=== PATIENT | female | born 1945 | race Caucasian/White ===

== ENCOUNTER 2018-01-06 15:26 | Inpatient (IN) | payer MEDICARE, OTHER ==
[~2018-01-06] VITALS: Ht 170.2 cm; Wt 74.8 kg
[2018-01-06 16:45] LABS: Alanine Aminotransfer (ALT/SGP 53 U/L (12-78); Albumin, Blood 2.6 g/dL (3.4-5.0); Albumin/Globulin Ratio 0.5 (0.8-1.8); Alk Phos 714 U/L (50-136); Anion Gap 14 mmol/L (6-16); Aspartate Aminotrans (AST/SGOT 320 U/L (12-37); Blood Urea Nitrogen 4 mg/dL (8-24); Bun/Creatinine Ratio 6.5 (12.0-20.0); CO2, Blood 23 mmol/L (21-32); Calcium, Blood 8.6 mg/dL (8.5-10.1); Chloride, Blood 98 mmol/L (98-108); Creatinine, Blood 0.62 mg/dL (0.40-1.00); Globulin, Blood 5.1 g/dL (2.2-4.0); Glomerular Filtration Rate >60 (60-); Glucose, Blood 86 mg/dL (70-99); Potassium, Blood 4.1 mmol/L (3.5-5.5); Sodium, Blood 135 mmol/L (136-145); Total Protein, Blood 7.7 g/dL (6.4-8.2)
[2018-01-06 19:23] LABS: BASOPHILS ABSOLUTE AUTO 0.09 K/mm3 (0.00-0.23); BASOPHILS PERCENT AUTO 1 % (0-2); EOSINOPHILS ABSOLUTE AUTO 0.03 K/mm3 (0.00-0.68); EOSINOPHILS PERCENT AUTO 0 % (0-6); Hemoglobin 12.8 g/dL (11.5-16.0); IMMATURE GRAN ABSOLUTE AUTO 0.03 K/mm3 (0.00-0.10); IMMATURE GRAN PERCENT AUTO 0 % (0-1); LYMPHOCYTES ABSOLUTE AUTO 1.56 K/mm3 (0.84-5.20); LYMPHOCYTES PERCENT AUTO 17 % (21-46); MONOCYTES ABSOLUTE AUTO 0.82 K/mm3 (0.16-1.47); MONOCYTES PERCENT AUTO 9 % (4-13); Mean Corpuscular HGB 39.9 pg (26.0-34.0); Mean Corpuscular HGB Conc 36.6 g/dL (31.5-36.5); Mean Corpuscular Volume 109 fL (80-100); Mean Platelet Volume 10.6 fL (9.1-12.4); NEUTROPHILS ABSOLUTE AUTO 6.76 K/mm3 (1.96-9.15); NEUTROPHILS PERCENT AUTO 73 % (41-73); Platelet Count 151 K/mm3 (150-400); RDW Coefficient Variation 18.6 % (11.7-14.2); Red Blood Cell Count 3.21 M/mm3 (3.80-5.20); White Blood Cell Count 9.29 K/mm3 (4.00-11.30)
[2018-01-07 01:31] LABS: Hematocrit 31.7 % (33.0-51.0); Hemoglobin 11.7 g/dL (11.5-16.0); Mean Corpuscular HGB 39.5 pg (26.0-34.0); Mean Corpuscular HGB Conc 36.9 g/dL (31.5-36.5); Mean Corpuscular Volume 107 fL (80-100); Mean Platelet Volume 10.3 fL (9.1-12.4); Platelet Count 131 K/mm3 (150-400); RDW Coefficient Variation 18.3 % (11.7-14.2); RDW Standard Deviation 72.7 fL (35.1-46.3); Red Blood Cell Count 2.96 M/mm3 (3.80-5.20); White Blood Cell Count 8.64 K/mm3 (4.00-11.30)
[2018-01-07 01:47] LABS: Alanine Aminotransfer (ALT/SGP 42 U/L (12-78); Albumin, Blood 2.2 g/dL (3.4-5.0); Albumin/Globulin Ratio 0.6 (0.8-1.8); Alk Phos 580 U/L (50-136); Anion Gap 8 mmol/L (6-16); Aspartate Aminotrans (AST/SGOT 255 U/L (12-37); Bilirubin, Total 5.6 mg/dL (0.1-1.0); Blood Urea Nitrogen 4 mg/dL (8-24); Bun/Creatinine Ratio 7.5 (12.0-20.0); CO2, Blood 29 mmol/L (21-32); Calcium, Blood 7.9 mg/dL (8.5-10.1); Chloride, Blood 100 mmol/L (98-108); Creatinine, Blood 0.54 mg/dL (0.40-1.00); Globulin, Blood 3.9 g/dL (2.2-4.0); Glomerular Filtration Rate >60 (60-); Glucose, Blood 86 mg/dL (70-99); Potassium, Blood 4.1 mmol/L (3.5-5.5); Sodium, Blood 137 mmol/L (136-145); Total Protein, Blood 6.1 g/dL (6.4-8.2)
[2018-01-07 02:50] LABS: Source, Urine Clean Catch
[2018-01-07 02:53] LABS: Appearance, Urine Clear (Clear); Blood, Urine Neg (Neg); Color, Urine Amber (P-Yellow); Glucose Qualitative, Urine Neg (Neg); Ketones, Urine 1+ (Neg); Leukocyte Esterase, Urine 2+ (Neg); Nitrite, Urine Pos (Neg); Protein, Urine 1+ (Neg); Specific Gravity, Urine 1.015 (1.003-1.022); Urobilinogen, Urine 2+ (Normal)
[2018-01-07 02:58] LABS: Bilirubin, Urine 2+ (Neg)
[2018-01-07 02:59] LABS: Bacteria Few /hpf; Red Blood Cells, Urine 0-2 /hpf (0-2); Squamous Epithelial Cells Rare /hpf (Few)
[2018-01-08 08:34] LABS: HBSAG SCREEN Negative (Negative); HEP B CORE AB, TOT Negative (Negative); HEP C VIRUS AB 0.1 (0.0-0.9)
[2018-01-08 11:18] LABS: Alanine Aminotransfer (ALT/SGP 35 U/L (12-78); Albumin/Globulin Ratio 0.5 (0.8-1.8); Alk Phos 530 U/L (50-136); Anion Gap 11 mmol/L (6-16); Aspartate Aminotrans (AST/SGOT 187 U/L (12-37); Bilirubin, Total 6.2 mg/dL (0.1-1.0); Blood Urea Nitrogen 7 mg/dL (8-24); Bun/Creatinine Ratio 11.5 (12.0-20.0); CO2, Blood 24 mmol/L (21-32); Calcium, Blood 7.6 mg/dL (8.5-10.1); Chloride, Blood 104 mmol/L (98-108); Creatinine, Blood 0.61 mg/dL (0.40-1.00); Glomerular Filtration Rate >60 (60-); Glucose, Blood 130 mg/dL (70-99); Sodium, Blood 139 mmol/L (136-145)
[2018-01-08 15:29] LABS: International Normalized Ratio 1.67; Prothrombin Time Results 16.7 Sec (9.7-11.5)
[2018-01-09 05:49] LABS: Anion Gap 10 mmol/L (6-16); Blood Urea Nitrogen 4 mg/dL (8-24); CO2, Blood 25 mmol/L (21-32); Calcium, Blood 7.5 mg/dL (8.5-10.1); Chloride, Blood 106 mmol/L (98-108); Creatinine, Blood 0.57 mg/dL (0.40-1.00); Glomerular Filtration Rate >60 (60-); Glucose, Blood 83 mg/dL (70-99); Potassium, Blood 3.3 mmol/L (3.5-5.5); Sodium, Blood 141 mmol/L (136-145)
[2018-01-09 08:39] LABS: Adenovirus F 40/41 Not Detected (NOT DETECT); Astrovirus Not Detected (NOT DETECT); Campylobacter Sp Not Detected (NOT DETECT); Cryptosporidium Not Detected (NOT DETECT); Cyclospora Cayetanensis Not Detected (NOT DETECT); E. Coli O157 Not Detected (NOT DETECT); Entamoeba Histolytica Not Detected (NOT DETECT); Enteroaggregative E. coli-EAEC Not Detected (NOT DETECT); Enteropathogenic E. coli-EPEC Not Detected (NOT DETECT); Enterotoxigenic E. coli-ETEC Not Detected (NOT DETECT); Giardia Lamblia Not Detected (NOT DETECT); Norovirus GI/GII Not Detected (NOT DETECT); Plesiomonas Shigelloides Not Detected (NOT DETECT); Rotavirus A Not Detected (NOT DETECT); Salmonella Sp Not Detected (NOT DETECT); Sapovirus Not Detected (NOT DETECT); Shiga Toxin-prod E. coli-STEC Not Detected (NOT DETECT); Shigella/Enteroin E. coli-EIEC Not Detected (NOT DETECT); Vibrio Cholerae Not Detected (NOT DETECT); Vibrio Sp Not Detected (NOT DETECT); Yersinia Enterocolitica Not Detected (NOT DETECT)
[2018-01-09 11:18] LABS: Alanine Aminotransfer (ALT/SGP 31 U/L (12-78); Albumin, Blood 1.8 g/dL (3.4-5.0); Albumin/Globulin Ratio 0.5 (0.8-1.8); Alk Phos 465 U/L (50-136); Anion Gap 9 mmol/L (6-16); Aspartate Aminotrans (AST/SGOT 151 U/L (12-37); Blood Urea Nitrogen 5 mg/dL (8-24); Bun/Creatinine Ratio 9.3 (12.0-20.0); CO2, Blood 25 mmol/L (21-32); Calcium, Blood 7.4 mg/dL (8.5-10.1); Chloride, Blood 107 mmol/L (98-108); Creatinine, Blood 0.54 mg/dL (0.40-1.00); Globulin, Blood 3.8 g/dL (2.2-4.0); Glomerular Filtration Rate >60 (60-); Glucose, Blood 83 mg/dL (70-99); Potassium, Blood 3.3 mmol/L (3.5-5.5); Sodium, Blood 141 mmol/L (136-145); Total Protein, Blood 5.6 g/dL (6.4-8.2)
[2018-01-09 13:20] LABS: Bilirubin, Direct 5.6 mg/dL (0.0-0.3); Bilirubin, Indirect 0.9 mg/dL (0.1-0.7); Bilirubin, Total 6.5 mg/dL (0.1-1.0)
[2018-01-09] MEDS ORDERED: METR500 PO (13:38)
[2018-01-09] MEDS ORDERED: ROXICODONE5 MG PO (13:41)
[2018-01-09] MEDS ORDERED: CIPR500 PO (13:42)
[2018-01-09] MEDS ORDERED: POTA10T PO (13:42)
[2018-01-09] MEDS ORDERED: ONE DAILY ESS400 MCG PO (13:44)
== END 2018-01-09 15:13 | disposition home or self-care (01) | DRG 433 ==
LOC: ER 15:26 → MEDS 15:27 → ENPENDDIS 01-09 11:27 → MEDS 01-09 15:13
PROVIDERS: Emergency Medicine; Hospitalist; Internal Medicine
DX: K70.10 Alcoholic hepatitis without ascites (principal); K82.1 Hydrops of gallbladder; E86.0 Dehydration; R13.10 Dysphagia, unspecified; K22.2 Esophageal obstruction; K52.9 Noninfective gastroenteritis and colitis, unspecified; K76.0 Fatty (change of) liver, not elsewhere classified; Z66 Do not resuscitate; F10.10 Alcohol abuse, uncomplicated; E87.6 Hypokalemia; Z90.49 Acquired absence of other specified parts of digestive tract; Z90.710 Acquired absence of both cervix and uterus; Z90.79 Acquired absence of other genital organ(s)
CPT/HCPCS: 36415; 71046; 74177; 76705; 80048; 80053; 81001; 82247; 82248; 82977; 83605; 83690; 84145; 85025; 85027; 85610; 86704; 86708; 86803; 87086; 87340; 87507; 96365; 99285-25; J0295; J0696; J1650; J3010; J7030; Q9967

== ENCOUNTER 2018-11-06 17:56 | Inpatient (IN) | payer MEDICARE, OTHER ==
[~2018-11-06] VITALS: Ht 170.2 cm; Wt 70.3 kg
[~2018-11-06 17:56] MED LIST: CIPR500 PO; METR500 PO; ONE DAILY ESS400 MCG PO; POTA10T PO; ROXICODONE5 MG PO
[2018-11-06 18:54] LABS: Source, Urine Catheter
[2018-11-06] MEDS ORDERED: TEMA15 PO (18:54)
[2018-11-06 18:56] LABS: PCO2 Arterial 52.2 mmHg (35-45); PO2 Arterial 89.9 mmHg (80-100); pH Blood Arterial 7.29 (7.35-7.45)
[2018-11-06 18:57] LABS: Bilirubin, Urine Neg (Neg); Blood, Urine 5+ (Neg); Glucose Qualitative, Urine Neg (Neg); Ketones, Urine 1+ (Neg); Leukocyte Esterase, Urine 3+ (Neg); Nitrite, Urine Pos (Neg); Protein, Urine 3+ (Neg); Specific Gravity, Urine 1.015 (1.003-1.022); Urobilinogen, Urine 1+ (Normal)
[2018-11-06 19:05] LABS: Appearance, Urine Cloudy (Clear); Color, Urine Yellow (P-Yellow)
[2018-11-06 19:07] LABS: White Blood Cells, Urine TNTC /hpf (0-5)
[2018-11-06 19:08] LABS: Bacteria Many /hpf; Squamous Epithelial Cells Few /hpf (Few)
[2018-11-06 19:12] LABS: BASOPHILS ABSOLUTE AUTO 0.03 K/mm3 (0.00-0.23); BASOPHILS PERCENT AUTO 0 % (0-2); EOSINOPHILS ABSOLUTE AUTO 0.03 K/mm3 (0.00-0.68); EOSINOPHILS PERCENT AUTO 0 % (0-6); Hematocrit 47.2 % (33.0-51.0); Hemoglobin 15.1 g/dL (11.5-16.0); IMMATURE GRAN ABSOLUTE AUTO 0.02 K/mm3 (0.00-0.10); IMMATURE GRAN PERCENT AUTO 0 % (0-1); LYMPHOCYTES ABSOLUTE AUTO 0.52 K/mm3 (0.84-5.20); LYMPHOCYTES PERCENT AUTO 6 % (21-46); MONOCYTES ABSOLUTE AUTO 1.01 K/mm3 (0.16-1.47); MONOCYTES PERCENT AUTO 11 % (4-13); Mean Corpuscular HGB 37.1 pg (26.0-34.0); Mean Corpuscular Volume 116 fL (80-100); Mean Platelet Volume 9.5 fL (9.1-12.4); NEUTROPHILS ABSOLUTE AUTO 7.78 K/mm3 (1.96-9.15); NEUTROPHILS PERCENT AUTO 83 % (41-73); Platelet Count 101 K/mm3 (150-400); RDW Coefficient Variation 15.6 % (11.7-14.2); Red Blood Cell Count 4.07 M/mm3 (3.80-5.20); White Blood Cell Count 9.39 K/mm3 (4.00-11.30)
[2018-11-06 19:12] LABS: U Amphetamine Screen Not Detected; U Barbituate Screen Not Detected; U Benzodiazapine Screen DETECTED; U Buprenorphine Screen Not Detected; U Cannabinoids Screen Not Detected; U Cocaine Screen Not Detected; U Methadone Screen Not Detected; U Methamphetamine Screen Not Detected; U Opiates Screen DETECTED; U Oxycodone Screen DETECTED; U Phencyclidine Screen Not Detected; U Propoxyphene Screen DETECTED
[2018-11-06 19:33] LABS: Acetaminophen, Random 6.6 ug/mL (10.0-30.0); Alanine Aminotransfer (ALT/SGP 44 U/L (12-78); Albumin, Blood 3.4 g/dL (3.4-5.0); Albumin/Globulin Ratio 0.7 (0.8-1.8); Alk Phos 461 U/L (50-136); Anion Gap 10 mmol/L (6-16); Aspartate Aminotrans (AST/SGOT 149 U/L (12-37); Bilirubin, Total 1.5 mg/dL (0.1-1.0); Blood Urea Nitrogen 13 mg/dL (8-24); Bun/Creatinine Ratio 8.8 (12.0-20.0); CO2, Blood 28 mmol/L (21-32); Chloride, Blood 97 mmol/L (98-108); Creatinine, Blood 1.47 mg/dL (0.40-1.00); Ethanol (Alcohol), Blood, Med <3 mg/dL; Glomerular Filtration Rate 37 (60-); Glucose, Blood 77 mg/dL (70-99); Magnesium, Blood 2.2 mg/dL (1.6-2.4); Potassium, Blood 3.9 mmol/L (3.5-5.5); Salicylate <1.7 mg/dL (2.8-20.0); Sodium, Blood 135 mmol/L (136-145); Total Protein, Blood 8.4 g/dL (6.4-8.2)
[2018-11-06 21:00] LABS: International Normalized Ratio 1.32; Prothrombin Time Results 13.6 Sec (9.7-11.5)
[2018-11-06 21:07] LABS: PCO2 Arterial 51.3 mmHg (35-45); PO2 Arterial 57.1 mmHg (80-100); pH Blood Arterial 7.33 (7.35-7.45)
--- NOTE | 2018-11-06 21:20 | NUR ---
PT ARRIVES TO ICU 6 FROM ER FOR DX OF OVERDOSE AND UROSEPSIS. SHE OPENS HER EYES TO HER NAME WHEN LOUDLY STATED HOWEVER DOES NOT ANSWER QUESTIONS AND DOES NOT APPEAR TO FOLLOW DIRECTIONS AT THIS TIME. PUPILS ARE 4-5 AND SLUGGISH BUT REACTIVE. RESP RATE 12-14 ON ARRIVAL, MAINTAINING SATS MID 90S WITH OXYGEN AT 3 L/MIN VIA OXYMIZER, LUNGS NOTED CLEAR THROUGHOUT. HRR, SINUS RHYTHM ON MONITOR, PULSES FULL X 4 EXTREMITIES, CAP REFILL 3 SECONDS. HYPOACTIVE BOWEL TONES NOTED, ABD SOFT, NO GRIMACING WITH PALPATION. TEMP PROBE DAVISON IN PLACE DRAINING CLEAR CEZAR URINE TO GRAVITY. K-PADS NOTED IN PLACE TO TORSO AND BILAT LOWER EXTREMITIES AND PT IS NOTED TO BE SWEATING UNDERNEATH KPADS. MIMA HUGGER BLANKET IN PLACE, PT'S TEMP APPROACHING NORMOTHERMIC, WARMING DEVICES DC'D AND WARM BLANKETS APPLIED WILL MONITOR. PRESSURE INJURY NOTED TO COCCYX, PICTURES OBTAINED AND MEPILEX SACRAL PROTECTION DRESSING APPLIED. RASH IS NOTED TO LOW ABD, PICTURES OBTAINED, LEFT OPEN TO AIR.
[2018-11-06 22:28] LABS: Acetaminophen, Random 6.6 ug/mL (10.0-30.0)
[2018-11-06 22:31] LABS: Albumin, Blood 2.4 g/dL (3.4-5.0); Albumin/Globulin Ratio 0.6 (0.8-1.8); Bilirubin, Total 1.6 mg/dL (0.1-1.0); Bun/Creatinine Ratio 12.2 (12.0-20.0); Calcium, Blood 7.4 mg/dL (8.5-10.1); Creatinine, Blood 1.15 mg/dL (0.40-1.00); Globulin, Blood 3.7 g/dL (2.2-4.0); Potassium, Blood 3.7 mmol/L (3.5-5.5)
[2018-11-06 22:46] LABS: Total Protein, Blood 6.1 g/dL (6.4-8.2)
--- NOTE | 2018-11-07 00:55 | NUR ---
BLEEDING FROM CENTRAL LINE INSERTION PT CONTINUES TO BLEED UNDER CENTRAL LINE DRESSING WITH 2 LB WEIGHT TO SITE AND PAOLA DRESSING IN PLACE. DIRECT PRESSURE HELD X 10 MINUTES LESS THAN 2 MINUTES AFTER PRESSURE RELEASED PT IS NOTED TO BEGIN BLEEDING AGAIN. PRESSURE THEN HELD X 15 MINUTES WITH GOOD STABILIZATION OF SITE, WILL MONITOR. DR NIXON AWARE.
--- NOTE | 2018-11-07 02:34 | NUR ---
PT NOTED WITH SNORING RESPIRATIONS 8-10/MIN, NPA TO RIGHT NARE WITH IMPROVED RESPIRATORY RATE AND EFFORT, WILL CONT TO MONITOR. PT CONTINUES TO MAINTAIN SATURATIONS WITH GOOD TIDAL VOLUMES. LUNGS REMAIN CLEAR THROUGHOUT.
[2018-11-07 04:31] LABS: BASOPHILS ABSOLUTE AUTO 0.03 K/mm3 (0.00-0.23); BASOPHILS PERCENT AUTO 0 % (0-2); EOSINOPHILS ABSOLUTE AUTO 0.01 K/mm3 (0.00-0.68); EOSINOPHILS PERCENT AUTO 0 % (0-6); Hematocrit 39.1 % (33.0-51.0); Hemoglobin 12.3 g/dL (11.5-16.0); IMMATURE GRAN ABSOLUTE AUTO 0.03 K/mm3 (0.00-0.10); IMMATURE GRAN PERCENT AUTO 0 % (0-1); LYMPHOCYTES ABSOLUTE AUTO 0.57 K/mm3 (0.84-5.20); LYMPHOCYTES PERCENT AUTO 6 % (21-46); MONOCYTES ABSOLUTE AUTO 1.15 K/mm3 (0.16-1.47); MONOCYTES PERCENT AUTO 13 % (4-13); Mean Corpuscular HGB 36.7 pg (26.0-34.0); Mean Corpuscular HGB Conc 31.5 g/dL (31.5-36.5); Mean Corpuscular Volume 117 fL (80-100); Mean Platelet Volume 10.1 fL (9.1-12.4); NEUTROPHILS ABSOLUTE AUTO 7.44 K/mm3 (1.96-9.15); NEUTROPHILS PERCENT AUTO 81 % (41-73); Platelet Count 96 K/mm3 (150-400); RDW Coefficient Variation 15.3 % (11.7-14.2); RDW Standard Deviation 65.8 fL (35.1-46.3); Red Blood Cell Count 3.35 M/mm3 (3.80-5.20); White Blood Cell Count 9.23 K/mm3 (4.00-11.30)
[2018-11-07 04:34] LABS: PCO2 Arterial 58.3 mmHg (35-45); PO2 Arterial 71.5 mmHg (80-100)
[2018-11-07 04:35] LABS: pH Blood Arterial 7.25 (7.35-7.45)
[2018-11-07 04:54] LABS: Albumin, Blood 2.5 g/dL (3.4-5.0); Albumin/Globulin Ratio 0.6 (0.8-1.8); Bun/Creatinine Ratio 16.4 (12.0-20.0); Calcium, Blood 7.6 mg/dL (8.5-10.1); Creatinine, Blood 0.98 mg/dL (0.40-1.00); Globulin, Blood 3.9 g/dL (2.2-4.0); Potassium, Blood 4.3 mmol/L (3.5-5.5); Total Protein, Blood 6.4 g/dL (6.4-8.2)
--- NOTE | 2018-11-07 06:50 | NUR ---
PT NEW ADMIT THIS SHIFT FOR OVERDOSE SUICIDE ATTEMPT. SON, CORINNE, IN TO VISIT AND STATED THAT FAMILY HAD SUSPECTED SHE WAS PREPARING FOR SUICIDE ATTEMPT, HE STATED THAT SHE HAS BEEN GETTING HOUSE CLEANED AND IN ORDER AND GIVING SOME BELONGINGS AWAY BUT THAT SHE STRONGLY DENIED BEING DEPRESSED. PT IS EASIER TO AROUSE THIS AM, OPENS EYES TO HER NAME AND MAKES EYE CONTACT, ONE OR TWO WORD ANSWERS RARELY NOTED AND WHISPERED. SHE WAS HYPOTENSIVE SHORTLY AFTER ARRIVAL TO ICU AND 3RD LITER BOLUS WAS INITIATED BY FELICIA GALVAN WITH MAINTENANCE IVF RATE INCREASE X 1 HOUR, VERY LITTLE EFFECT NOTED TO BP AND DR NIXON ARRIVED TO BEDSIDE NEAR COMPLETION OF BOLUS. CENTRAL LINE PLACED BY DR NIXON TO RIGHT IJ FOR LEVOPHED ADMINISTRATION, PT TOLERATED PROCEDURE WELL HOWEVER HEMATOMA AND BLEEDING WERE NOTED AT INSERTION SITE PRIOR TO VERIFICATION CXR, 2 LB SANDBAG AND PAOLA DRESSING PLACED WITHOUT CONTROL OF BLEEDING, THESE WERE REMOVED AND BLEEDING WAS CONTROLLED WITH DIRECT PRESSURE HELD FOR A TOTAL OF 25 MINUTES. BP IS IMPROVED WITH LEVOPHED AT 4 MCG/MIN. LUNGS REMAIN CLEAR THROUGHOUT, PT MAINTAINED SATS WITH OXYGEN AT 3-4 L/MIN VIA OXYMIZER, RESP RATE 10-12, ABG THIS AM WITH INCREASED CO2 AND DECREASED PH, RESULTS PHONED TO DR NIXON AND BIPAP ORDERED, FOLLOW UP ABG FOR 0700 THIS AM.
[2018-11-07 08:44] LABS: PCO2 Arterial 58.8 mmHg (35-45); PO2 Arterial 91.4 mmHg (80-100); pH Blood Arterial 7.25 (7.35-7.45)
--- NOTE | 2018-11-07 09:04 | NUR ---
PT'S REPEAT ABG THIS AM UNCHANGED. DR. HUITRON NOTIFIED AND RECEIVED ORDER FOR CLOTH MERCERIZING SUPERVISOR CONSULT. DR. LOZANO NOTIFIED AND BIPAP SETTING CHANGED FROM 16 TO 02/03 AND ORDER FOR REPEAT ABG AT 0930, RT NOTIFIED OF CHANGES AND ORDERS.
[2018-11-07 10:05] LABS: PCO2 Arterial 58.3 mmHg (35-45); PO2 Arterial 101 mmHg (80-100)
[2018-11-07 10:06] LABS: pH Blood Arterial 7.25 (7.35-7.45)
--- NOTE | 2018-11-07 10:59 | NUR ---
INTUBATE: PT'S REPEAT ABG AT [address] LOZANO NOTIFIED AND DECIDED TO INTUBATE. PT WAS GIVEN 10MG ETOMIDATE AND 20MG ROCURONIUM FOR INTUBATION. PT INTUBATED AT 1025 WITH 7.5 TUBE AND 25 AT THE LIP. PT TOLERATED PROCEDURE WELL. PROPOFOL STARTED AND RESTRAINTS INITIATED. PT'S SON HERE AND WAS UPDATED ON CHANGES IN PT STATUS. CONTINUING TO MONITOR.
--- NOTE | 2018-11-07 12:32 | NUR ---
REASSESSMENT: PT GOT INTUBATED THIS MORNING DUE TO INSUFFICIENT VENTILATION AND PT IS DONG WELL SINCE. SHE IS ON PROPOFOL, BUT STILL OPENS HER EYES TO VERBAL STIMULI, BUT IS CALM AND GOES QUICKLY BACK TO SLEEP. SHE HAS SMALL AMT OF BLOODY SECRETIONS FROM HER MOUTH. OG HAD DARK GREEN OUTPUT AT FIRST AND NOW IS MORE CLEAR BILE APPEARANCE. SR. ATTEMPTED TO TURN LEVOPHED OFF, BUT BP DROPPED SO LEVOPHED BACK AT 2 MCG/MIN. NO OTHER CHANGES SINCE MORNING ASSESSMENT. CONTINUE TO MONITOR.
[2018-11-07 13:41] LABS: Base Excess Venous -1.1 mmol/L; PCO2 Venous 31.8 mmHg (38-42); PO2 Venous 75.6 mmHg (38-42); pH Blood Venous 7.46 (7.34-7.37)
--- NOTE | 2018-11-07 17:17 | NUR ---
SHIFT SUMMARY: PT WAS INTUBATED THIS SHIFT BUT HAD DONE WELL ON THE VENTILATOR SINCE. SHE IS LIGHTLY SEDATED WITH PROPOFOL, OPENING HER EYES TOV OICE, BUT REMAINS CALM AND COOPERATIVE. SHE ISN'T FOLLOWING COMMANDS BUT TRACKS PEOPLE IN THE ROOM WITH HER EYES. LUNGS ARE CLEAR, MOD AMT OF THICK MELISSA SPUTUM. STILL HAVING A SMALL AMT OF BLOODY SECRETIONS FROM ORAL CAVITY. SR, LEVOPHED TURNED OFF AT 1630 AND BP HOLDING SO FAR. OG PUTTING OUT DARK GREEN/ANIL FLUID. DAVISON DRAINING YELLOW URINE. PT'S SON WAS IN TODAY AND HAS BEEN FULLY UPDATED. CONTINUING TO MONITOR.
--- NOTE | 2018-11-07 19:15 | NUR ---
ASSUMED CARE PT IS INTUBATED AND SEDATED, PROPOFOL AT 20 MCG/KG/MIN. SHE OPENS HER EYES TO STATED NAME, DOES NOT ANSWER QUESTIONS AT THIS TIME, DOES MAKE EYE CONTACT AND DOES TRACK BRIEFLY HOWEVER IS NOTED TO CLOSE EYES WITHIN 15 SECONDS OF EYE OPENING. DOES NOT FOLLOW COMMANDS AT THIS TIME. ETT 7.5 @ 25 CM AT TEETH, VENT SETTING AC 20, TV 430, PEEP 5, AND FIO2 OF 30%, SATS ARE 96% AT THIS TIME, LUNGS REMAIN CLEAR THROUGHOUT, RATE IS 20 AT THIS TIME. HRR, SINUS WITH SINUS ARRHYTHMIA NOTED ON MONITOR, RATE 70S, PULSES FULL X 4 EXTREMITIES, SKIN IS PWD, TRACE EDEMA NOTED BILAT LOWER EXTREMITIES, MAINTAINING BP WITH LEVOPHED ON STANDBY SINCE APPROX 1600 TODAY, WILL CONT TO MONITOR. HYPOACTIVE BOWEL TONES CONTINUE, OG TUBE IS NOTED TO LOW INTERMITTENT SUCTION, OUPUT GREEN AT THIS TIME, ABD CONTINUES SOFT, NO GRIMACING OR GAURDING WITH PALPATION. TEMP PROBE DAVISON REMAINS IN PLACE, DRAINING CLEAR YELLOW URINE TO GRAVITY AT THIS TIME.
[2018-11-07 22:13] LABS: Base Excess Venous 2.7 mmol/L; Bicarbonate Venous 26.9 mmol/L (24.0-30.0); PCO2 Venous 29.1 mmHg (38-42); PO2 Venous 37.5 mmHg (38-42)
[2018-11-07 22:14] LABS: pH Blood Venous 7.54 (7.34-7.37)
[2018-11-08 03:51] LABS: BASOPHILS ABSOLUTE AUTO 0.03 K/mm3 (0.00-0.23); BASOPHILS PERCENT AUTO 1 % (0-2); EOSINOPHILS ABSOLUTE AUTO 0.47 K/mm3 (0.00-0.68); EOSINOPHILS PERCENT AUTO 8 % (0-6); Hematocrit 31.9 % (33.0-51.0); Hemoglobin 10.7 g/dL (11.5-16.0); IMMATURE GRAN ABSOLUTE AUTO 0.02 K/mm3 (0.00-0.10); IMMATURE GRAN PERCENT AUTO 0 % (0-1); LYMPHOCYTES ABSOLUTE AUTO 0.78 K/mm3 (0.84-5.20); LYMPHOCYTES PERCENT AUTO 13 % (21-46); MONOCYTES ABSOLUTE AUTO 0.58 K/mm3 (0.16-1.47); MONOCYTES PERCENT AUTO 10 % (4-13); Mean Corpuscular HGB 36.5 pg (26.0-34.0); Mean Corpuscular HGB Conc 33.5 g/dL (31.5-36.5); Mean Platelet Volume 10.3 fL (9.1-12.4); NEUTROPHILS ABSOLUTE AUTO 3.93 K/mm3 (1.96-9.15); NEUTROPHILS PERCENT AUTO 68 % (41-73); Platelet Count 80 K/mm3 (150-400); RDW Coefficient Variation 15.4 % (11.7-14.2); RDW Standard Deviation 62.2 fL (35.1-46.3); Red Blood Cell Count 2.93 M/mm3 (3.80-5.20); White Blood Cell Count 5.81 K/mm3 (4.00-11.30)
[2018-11-08 03:54] LABS: Mean Corpuscular Volume 109 fL (80-100)
[2018-11-08 04:14] LABS: Anion Gap 7 mmol/L (6-16); Blood Urea Nitrogen 9 mg/dL (8-24); Bun/Creatinine Ratio 13.2 (12.0-20.0); CO2, Blood 27 mmol/L (21-32); Calcium, Blood 7.6 mg/dL (8.5-10.1); Chloride, Blood 107 mmol/L (98-108); Creatinine, Blood 0.68 mg/dL (0.40-1.00); Glomerular Filtration Rate >60 (60-); Glucose, Blood 88 mg/dL (70-99); Potassium, Blood 2.8 mmol/L (3.5-5.5); Sodium, Blood 141 mmol/L (136-145)
--- NOTE | 2018-11-08 04:26 | NUR ---
PROPOFOL TO STANDBY FOR SPONTANEOUS BREATHING TRIAL.
--- NOTE | 2018-11-08 05:05 | NUR ---
SPONTANEOUS BREATHING TRIAL COMPLETE, PROPOFOL RESUMED, SEE RT SPONTANEOUS BREATHING TRIAL.
--- NOTE | 2018-11-08 06:47 | NUR ---
PT OPENING EYES SPONTANEOUSLY, PULLING AGAINST WRIST RESTRAINTS, MAKES EYE CONTANCT, APPEARS TO BE MOUTHING WORDS, UNABLE TO ASCERTAIN WHAT PT IS ATTEMPTING TO SAY, NODS HEAD "YES" WHEN EXPLAINED TO HER THAT SHE IS IN [facility] IN THE INTENSIVE CARE UNIT FOLLOWING HER DAUGHTER FINDING HER AT HER HOME WITH A SUICIDE NOTE, BOTTLES OF ALCOHOL, AND PILLS. PROPOFOL INCREASED TO 30 MCG/KG/MIN THEN INCREASED TO 40 MCG/KG/MIN. LUNGS REMAIN CLEAR THROUGHOUT, VENT SETTINGS ARE NOW AC 14, TV 430, FIO2 30% AND PEEP OF 5, SATS 99-100% AT THIS TIME. HRR, SINUS ON MONITOR, RATE 60S, PRESSURE MAINTAINING, LEVOPHED HAS REMAINED ON STANDBY THROUGHOUT SHIFT. OG TUBE REMAINS TO LOW INTERMITTENT SUCTION, OUTPUT OF 625 ML THIS SHIFT, DARK GREEN TO CLEAR BROWN THIS AM. DAVISON CATH REMAINS IN PLACE, URINE OUTPUT 765 ML THIS SHIFT. CENTRAL LINE REMAINS TO RIGHT IJ, DRESSING CDI, SITE WNL.
--- NOTE | 2018-11-08 09:28 | NUR ---
REPORTED PT'S PHOS LEVEL TO DR. LOZANO. RECEIVED ORDERS TO GIVE A TOTAL OF 70MEQ OF KCL AND 30MMOL OF KPHOS, SEE ORDERS.
--- NOTE | 2018-11-08 09:33 | NUR ---
SBT: PT WOKE UP AND WAS FOLLOWING COMMANDS WITH SEDATION OFF. MILDLY AGITATED, PULLING AT RESTRAINTS, BUT REDIRECTABLE. ON PS 5 PEEP 5 PT WOULD PULL VOLUMES OF 300-500ML FOR A FEW BREATHS, BUT THEN ONLY PULL 100-200ML FOR SEVERAL BREATHS. SHE KEPT UP THIS PATTERN THAT WAS SIMILAR TO BEFORE SHE WAS INTUBATED YESTERDAY, DESPITE BEING FULLY AWAKE DURING TRIAL. PT'S RESP RATE DID START TO GO BACK INTO THE 30S TOO SO PT SWITCHED BACK TO AC. DR. LOZANO NOTIFIED OF PT FAILING WEAN.
--- NOTE | 2018-11-08 13:17 | NUR ---
REASSESSMENT: PT REMAINS INTUBATED AND SEDATED. LUNGS ARE CLEAR, SR, BP STABLE. WHEN SEDATION WAS LIFTED PT WAS ABLE TO FOLLOW COMMANDS. DAVISON WITH YELLOW URINE. PT'S SON CAME IN AND WAS FULLY UPDATED. ALL QUESTIONS ANSWERED. CONTINUING TO MONITOR.
--- NOTE | 2018-11-08 16:59 | NUR ---
SHIFT SUMMARY: PT REMAINED INTUBATED TODAY. SHE RESPONDS AND FOLLOWS COMMANDS WHEN OFF SEDATION. HER LUNGS ARE CLEAR, SHE IS PRODUCING A SMALL AMT OF MELISSA SPUTUM, THICK. SR, BP HAS BEEN STABLE. OG HAD SCANT OUTPUT TODAY, DARK GREEN. DAVISON WITH YELLOW OUTPUT. PT'S SON HAS BEEN AT THE BEDSIDE FOR MOST OF THE DAY. ALL QUESTIONS ANSWERED. CONTINUING TO MONITOR.
--- NOTE | 2018-11-08 19:15 | NUR ---
ASSUMED CARE OF PT SHE CONTINUES TO BE SEDATED AND INTUBATED, AROUSES EASILY TO VERBAL STIMULI, OPENS EYES ON COMMAND HOWEVER DOES NOT FOLLOW DIRECTIONS AT THIS TIME. NODS HEAD YES THAT SHE CAN MOVE FINGERS ON BILAT HANDS HOWEVER NO MOVEMENT IS NOTED. CLOSES EYES WITHIN 5 SECONDS OF OPENING AND REQUIRES REPEATED VERBAL PROMPTING FOR RESPONSE. LUNGS REMAIN CLEAR THROUGHOUT, 7.5 ETT CONTINUES AT 25 AT TEETH, PT IS NOT NOTED TO GAG WITH DEEP SUCTIONING DONE WITH ORAL CARE, DOES APPEAR TO ATTEMPT TO SWALLOW, VENT SETTINGS AC 14, TV 430, FIO2 25%, PEEP 5, SATS 98-99%, RATE 14. HRR, SINUS ON MONITOR, RATE 60S, SKIN PWD, MODERATE NON PITTING EDEMA IS NOW NOTED TO BILAT HANDS WILL ATTEMPT TO ELEVATE THROUGHOUT SHIFT, BILAT TRACE PEDAL EDEMA CONTINUES, CAP REFILL BRISK, PULSES FULL X 4 EXTREMITIES, BP IS NOTED HYPERTENSIVE 150-160S SYSTOLIC, MAP 110S. ABD CONTINUES WITH HYPOACTIVE BOWEL TONES, OG REMAINS IN PLACE TO LOW INTERMITTENT SUCTION, MINIMAL OUTPUT, YELLOW CLEAR FLUID PRESENT IN TUBING AT THIS TIME. TEMP PROBE DAVISON REMAINS IN PLACE, CLEAR YELLOW URINE OUTPUT, ADEQUATE AMOUNT. CENTRAL LINE REMAINS IN PLACE TO RIGHT IJ, DRESSING CDI, SITE WNL, INFUSING PROPOFOL AT 30 MCG/KG/MIN, AND NS AT 150 ML/HR. MEPILEX DRESSING REMAINS IN PLACE TO COCCYX DECUB, WILL CONT Q 2 HOUR TURNS.
[2018-11-09 04:37] LABS: PCO2 Arterial 32.6 mmHg (35-45); PO2 Arterial 77.8 mmHg (80-100); pH Blood Arterial 7.44 (7.35-7.45)
[2018-11-09 05:18] LABS: Anion Gap 6 mmol/L (6-16); Blood Urea Nitrogen 5 mg/dL (8-24); Bun/Creatinine Ratio 8.9 (12.0-20.0); CO2, Blood 24 mmol/L (21-32); Calcium, Blood 7.9 mg/dL (8.5-10.1); Chloride, Blood 112 mmol/L (98-108); Creatinine, Blood 0.56 mg/dL (0.40-1.00); Glomerular Filtration Rate >60 (60-); Glucose, Blood 91 mg/dL (70-99); Potassium, Blood 3.5 mmol/L (3.5-5.5); Sodium, Blood 142 mmol/L (136-145)
--- NOTE | 2018-11-09 06:01 | NUR ---
PT RESTING QUIETLY AT THIS TIME, PROPOFOL HAS BEEN ON STANDBY SINCE 341 THIS AM FOR SPONTANEOUS BREATHING TRIAL, VENT REMAINS ON SPONTANEOUS AT THIS TIME, RESP RATE HIGH TEENS, SATS 99-100%, TIDAL VOLUMES NEAR 400, FIO2 @ 25%, PEEP 5. PT OPENS EYES WITH STAFF MOVEMENT IN ROOM, FOLLOWS COMMANDS, CLOSES EYES WITH DECREASE IN STIMULUS. CONTINUES IN SINUS RHYTHM, HYPERTENSIVE WITH SBPS 160S WITH PROPOFOL ON STANDBY. OG TUBE WITH MINIMAL OUTPUT THIS SHIFT, CONTINUES TO LOW INTERMITTENT SUCTION, BOWEL TONES REMAIN ACTIVE. URINE OUTPUT IMPROVED, TEMP PROBE DAVISON REMAINS IN PLACE.
[2018-11-09 06:18] LABS: BASOPHILS ABSOLUTE AUTO 0.03 K/mm3 (0.00-0.23); BASOPHILS PERCENT AUTO 1 % (0-2); EOSINOPHILS ABSOLUTE AUTO 0.42 K/mm3 (0.00-0.68); EOSINOPHILS PERCENT AUTO 9 % (0-6); Hematocrit 36.8 % (33.0-51.0); Hemoglobin 12.3 g/dL (11.5-16.0); IMMATURE GRAN ABSOLUTE AUTO 0.01 K/mm3 (0.00-0.10); IMMATURE GRAN PERCENT AUTO 0 % (0-1); LYMPHOCYTES ABSOLUTE AUTO 0.93 K/mm3 (0.84-5.20); LYMPHOCYTES PERCENT AUTO 19 % (21-46); MONOCYTES ABSOLUTE AUTO 0.61 K/mm3 (0.16-1.47); MONOCYTES PERCENT AUTO 12 % (4-13); Mean Corpuscular HGB 36.5 pg (26.0-34.0); Mean Corpuscular HGB Conc 33.4 g/dL (31.5-36.5); Mean Corpuscular Volume 109 fL (80-100); Mean Platelet Volume 9.6 fL (9.1-12.4); NEUTROPHILS ABSOLUTE AUTO 2.91 K/mm3 (1.96-9.15); NEUTROPHILS PERCENT AUTO 59 % (41-73); Platelet Count 88 K/mm3 (150-400); RDW Standard Deviation 65.3 fL (35.1-46.3); Red Blood Cell Count 3.37 M/mm3 (3.80-5.20); White Blood Cell Count 4.91 K/mm3 (4.00-11.30)
--- NOTE | 2018-11-09 11:00 | NUR ---
0730: CARE ASSUMED, ASSESSMENT COMPLETED. PT AWAKE AND ALERT, FOLLOWING COMMANDS, NO SEDATION AT THIS TIME, TOLERATING ETT WELL. VENT ON SPONTANEOUS MODE AT THIS TIME, FIO2 35%, PEEP 5, PT'S RR 19, Vt 300'S, SPO2 100%. VSS, PT INDICATES IRRITATION FROM ETT TUBE, DENIES OTHER PAIN. CROW, 5MM, NEURO ASSESSMENT WNL. 0800: RR INCREASED TO 40'S, Vt DECREASED TO 100'S. VENT SETTING CHANGED BACK TO AC14/430/25%/5 BY RT. WILL CONTINUE TO MONITOR. 1000: RT ATTEMPTED ANOTHER SPONTANEOUS BREATING TRIAL, PT AGAIN BECAME TIRED AND DROPPED Vt AND INCREASED RR, PT CURRENTLY ON AC AT PREVIOUSLY STATED SETTINGS. PT SLEEPING, ROUSES EASILY TO VOICE, CONTINUES TO FOLLOW COMMANDS AND ACT APPROPRIATELY. NO NEURO CHANGES NOTED. SON AT BEDSIDE, WILL CONTINUE TO MONITOR.
--- NOTE | 2018-11-09 12:52 | NUR ---
1200: VENT REMAINS ON AC MODE, SETTINGS UNCHANGED. PT REPOSITIONED IN BED, ORAL CARE COMPLETED. BEGINNING FOOT DROP NOTED, HEEL BOOTS PLACED ON BILAT FEET. MEPILEX TO COCCYX CDI, PT RESTING, VSS. PT AWAKE AND ALERT AT THIS TIME, FOLLOWS DIRECTIONS, NEURO STATUS UNCHANGED. PT DOZING ON AND OFF, SON REMAINS AT BEDSIDE.
--- NOTE | 2018-11-09 14:43 | NUR ---
1300: PT TRYING TO COMMUNICATE USING PEN AND PAPER, UNABLE TO WRITE LEGIBLE LETTERS AT THIS TIME, UNABLE TO POINT TO ALPHABET LETTERS TO COMMUNICATE HER MESSAGE. SON AT BEDSIDE WITH PT AT THIS TIME. 1440: PT HAS STILL BEEN UNABLE TO WRITE A MESSAGE, SHAKES HEAD NO WHEN ASKED IF PAINFUL OR UNCOMFORTABLE. DR. SHANKS IN TO SEE PT, NO PLAN FOR EXTUBATION TODAY DUE TO POOR TOLERANCE OF SPONTANEOUS SETTING ON VENT EARLIER TODAY. PROPOFOL INFUSION RESUMED AT 20MCG/KG/MIN, VENT SETTINGS UNCHANGED.
--- NOTE | 2018-11-09 17:55 | NUR ---
1515: PT AWAKE, BP IMPROVING BUT REMAINS ELEVATED. PROPOFOL INCREASED TO 30MCG/KG/MIN AT THIS TIME. SON REMAINS AT BEDSIDE. 1600: PT RESTING QUIETLY WITH EYES CLOSED, IS NOW SEDATED, OPENS EYES TO PRESSURE, DOES NOT FOLLOW COMMANDS. CROW, VSS, LS CTA. 1800: PT REMAINS SEDATED, NO AGITATION OR RESTLESSNESS NOTED. BP 140'S/70'S, RR 15, Vt MID 400'S, OTHER VSS. PT HAS HAD GOOD URINE OUTPUT THIS SHIFT, NO BM. ABDOMEN DISTENDED BUT SOFT, BT HYPOACTIVE, NGT FLUSHED EARLIER WITH MEDICATION ADMINISTRATION, THEN LIWS WAS RESUMED ONE HOUR LATER. PT WAS UNABLE TO COMMUNICATE WHAT SHE WAS TRYING TO SAY EARLIER IN THE SHIFT, DR. SHANKS AWARE OF PT'S COGNITION TODAY.
--- NOTE | 2018-11-09 18:54 | NUR ---
1950: DR. SHANKS AWARE OF CBG, NEW ORDER RECEIVED, D5 0.45%NS INFUSING PER ORDERS. PT RESTING QUIETLY IN BED WITH EYES CLOSED, VS REMAIN STABLE WITH PROPOFOL INFUSION. VENT SETTINGS AC14/430/25%/5. REPORT TO ONCOMING NURSE.
--- NOTE | 2018-11-09 19:30 | NUR ---
ASSUMED CARE PT IS RESTING QUIETLY RECLINING IN BED, REMAINS SEDATED AND INTUBATED. PROPOFOL GTT NOTED INFUSING AT 30 MCG/KG/MIN, MAINTENANCE IVF IS NOW D5 1/2 NS INFUSING AT 75 ML/HR. CENTRAL LINE REMAINS IN PLACE TO RIGHT IJ, DRESSING CDI, SITE WNL. ETT 7.5 AT 25 CM AT TEETH, LUNGS CLEAR THROUGHOUT, SATS HIGH 90S, RESP RATE 14/MIN, VENT SETTINGS AC 14, TV 430, FIO2 25%, AND PEEP 5.0. HRR, SINUS TO SINUS EUGENE ON MONITOR, RATE HIGH 50S TO LOW 60S, BP MAINTAINING, PULSES FULL X 4 EXTREMITIES, BRISK CAP REFILL, TRACE PEDAL EDEMA AND MODERATE EDEMA TO BILAT HANDS CONTINUES, NONPITTING. OG TUBE REMAINS IN PLACE, LOW INTERMITTENT SUCTION CONTINUES, SCANT OUTPUT, CLEAR BROWN FLUID IN TUBING, ABD DISTENDED, SOFT, HYPERACTIVE BOWEL TONES ARE NOTED THROUGHOUT. TEMP PROBE DAVISON REMAINS IN PLACE DRAINING CLEAR YELLOW URINE TO GRAVITY. MEPILEX DRESSING CONTINUES TO COCCYX, CDI. BILAT HEEL PROTECTORS IN PLACE.
[2018-11-10 04:20] LABS: BASOPHILS ABSOLUTE AUTO 0.03 K/mm3 (0.00-0.23); BASOPHILS PERCENT AUTO 1 % (0-2); EOSINOPHILS ABSOLUTE AUTO 0.36 K/mm3 (0.00-0.68); EOSINOPHILS PERCENT AUTO 8 % (0-6); Hematocrit 35.5 % (33.0-51.0); Hemoglobin 11.9 g/dL (11.5-16.0); IMMATURE GRAN ABSOLUTE AUTO 0.02 K/mm3 (0.00-0.10); IMMATURE GRAN PERCENT AUTO 0 % (0-1); LYMPHOCYTES ABSOLUTE AUTO 1.06 K/mm3 (0.84-5.20); LYMPHOCYTES PERCENT AUTO 23 % (21-46); MONOCYTES ABSOLUTE AUTO 0.63 K/mm3 (0.16-1.47); MONOCYTES PERCENT AUTO 14 % (4-13); Mean Corpuscular HGB 36.5 pg (26.0-34.0); Mean Corpuscular HGB Conc 33.5 g/dL (31.5-36.5); Mean Corpuscular Volume 109 fL (80-100); Mean Platelet Volume 10.2 fL (9.1-12.4); NEUTROPHILS ABSOLUTE AUTO 2.45 K/mm3 (1.96-9.15); NEUTROPHILS PERCENT AUTO 54 % (41-73); Platelet Count 94 K/mm3 (150-400); RDW Coefficient Variation 15.7 % (11.7-14.2); Red Blood Cell Count 3.26 M/mm3 (3.80-5.20); White Blood Cell Count 4.55 K/mm3 (4.00-11.30)
--- NOTE | 2018-11-10 04:24 | NUR ---
PROPOFOL TO STANDBY FOR SPONTANEOUS BREATHING TRIAL.
[2018-11-10 04:35] LABS: Anion Gap 6 mmol/L (6-16); Blood Urea Nitrogen 4 mg/dL (8-24); Bun/Creatinine Ratio 6.8 (12.0-20.0); CO2, Blood 25 mmol/L (21-32); Calcium, Blood 8.2 mg/dL (8.5-10.1); Chloride, Blood 111 mmol/L (98-108); Creatinine, Blood 0.59 mg/dL (0.40-1.00); Glomerular Filtration Rate >60 (60-); Glucose, Blood 93 mg/dL (70-99); Phosphorus, Blood 2.9 mg/dL (2.5-4.9); Potassium, Blood 3.2 mmol/L (3.5-5.5); Sodium, Blood 142 mmol/L (136-145)
--- NOTE | 2018-11-10 04:35 | NUR ---
SEDATION VACATION PT IS ALERT AND BLINKING EYES SPONTANEOUSLY, ANSWERS YES/NO QUESTIONS, FOLLOWS COMMANDS.
--- NOTE | 2018-11-10 04:55 | NUR ---
SEDATION VACATION PT NODS YES WHEN ASKED IF SHE IS TOO COLD, NODS YES WHEN ASKED IF SHE IS IN PAIN, SHAKES HEAD NO WHEN ASKED IF HER MOUTH AND THROAT ARE THE ONLY PLACES SHE IS HURTING, NODS YES WHEN ASKED IF SHE IS HAVING ABD PAIN. WARM BLANKETS PROVIDED, WILL SPEAK WITH MD REGARDING PAIN MEDICATION ORDERS. EXPLAINED TO PT THAT SHE IS IN IN THE ICU, THAT TODAY IS Friday, PT OPENS EYES WIDE AND APPEARS SURPRISED, NODS HEAD YES WHEN ASKED IF SHE DOES NOT REMEMBER SEVERAL DAYS. EXPLAINED THAT SHE WAS INTUBATED ON FRIDAY SHE WAS NOT BREATHING VERY WELL ON HER OWN, EXPLAINED THAT MEDICATIONS FOR SEDATION HAVE BEEN ADMINISTERED WHILE SHE IS INTUBATED. WILL MONITOR.
--- NOTE | 2018-11-10 05:20 | NUR ---
SEDATION VACATION COMPLETE RESPIRATORY THERAPIST REPORTS SPONTANEOUS BREATHING TRIAL IS COMPLETE AT THIS TIME, PROPOFOL GTT RESUMED, EXPLAINED SEDATION AND PURPOSE TO PT.
--- NOTE | 2018-11-10 06:36 | NUR ---
PT REMAINS SEDATED AND INTUBATED, AWAKENED EASILY FOR SPONTANEOUS BREATHING TRIAL THIS AM, PER RT, PT PASSED SPONTANEOUS BREATHING TRIAL, SHE MADE EYE CONTACT AND TRACKED MOVEMENT IN ROOM, ANSWERED YES/NO QUESTIONS APPROPRIATELY AND FOLLOWED COMMANDS WELL. VENT SETTINGS REMAIN AC 14, TV 430, FIO2 25%, AND PEEP 5, SHE HAS MAINTAINED RESPIRATION RATE AT OR NEAR SET RATE OF 14 THROUGHOUT SHIFT, LUNGS REMAIN CLEAR, SATS CONTINUE HIGH 90S. HRR, SINUS TO SINUS EUGENE THIS SHIFT, RATE 50S-60S, PRESSURE MAINTAINING NEAR 150 SYSTOLIC THROUGHOUT SHIFT WITH DIASTOLIC MID 70S, PULSES REMAIN FULL TO ALL 4 EXTREMITIES, BRISK CAP REFILL, EDEMA CONTINUES HOWEVER IS IMPROVED. DAVISON CATH WITH GOOD URINE OUTPUT, SEE I&O RECORDS. SCANT DRAINAGE FROM OG TUBE, HYPERACTIVE BOWEL TONES CONTINUE, NO BM THIS SHIFT, ABD REMAINS SOFT WITH NO GRIMACING/GUARDING HOWEVER PT DID NOD HEAD YES TO INQUIRY REGARDING ABD PAIN. CENTRAL LINE REMAINS TO RIGHT IJ, CONTINUES INFUSING PROPOFOL AT 30 MCG/KG/MIN AND MAINTAINENCE IVF OF D5 1/2 NS AT 75 ML/HR, SITE REMAINS WNL, DRESSING REMAINS CDI. MEPILEX DRESSING CONTINUES TO COCCYX DECUB, REMAINS CDI. NYSTATIN POWDER TO SKIN FOLDS PER ORDERS.
--- NOTE | 2018-11-10 08:00 | NUR ---
Recieved report from Gloria. Patient is intubated and sedated and has 7.5 ET and 25 cm. Her vent setting ar AV 14, TV 430, FiO2 25%, PEEP 5.0 sats 96%. Patient has RIJ quad and is infusing Potassium rider, Propofol 30mcg/kg/min, D5 1/2 @ 75ml/hr. Patient has 16Fr. Bolaños draining to gravity yellow urine adequate amounts. He has Dinora boots and SCD's bilaterally. Patient has OG in place with bile and scant amount of coffe ground type sediments.
--- NOTE | 2018-11-10 09:40 | NUR ---
Patient place on spontaneous mode and placed on PS 5/[address] schmidt in room and states to leave on this setting until sats start to drop regardless of TV. Propofol on standby. Potassium riders are done.
--- NOTE | 2018-11-10 13:52 | NUR ---
Patient extubated after several hours of spontaneous mode and has volumes of 360's. After extubation approx 30 min she was satting at 100 anbd reduced too 2L. Currently she is on RA and sats 96%. I have tested her with Ice chips without difficulty and advanced to water and tolerated well. She denies any current complaints and family in room.
--- NOTE | 2018-11-10 15:30 | NUR ---
Patient continues to rest in bed with family at bedside3. She awakens easily and tolertates PO meds one at a time. Fluids continue. Dr Culp called and will see patient in am.
--- NOTE | 2018-11-10 18:00 | NUR ---
Talked with patient of reason for admission and she was able to state why. She states currently she ffel safe and does not want to hurt herself but states that she lives with 9/10 pain in multiple areas and if she went home without any changes that she may try to end her life again. She feels hopelessness and has no resources. She remains on RA and sats in the mid 90%'s. VSS Son at bedside agrees to help with some resource, but does not live in area. She has tolerated as much as applesauce without difficulty. No other significant changes. She is currently resting.
--- NOTE | 2018-11-10 22:12 | NUR ---
PT'S SON REMAINS AT BEDSIDE. PT WITH NO COMPLAINTS. VSS.
--- NOTE | 2018-11-11 01:51 | NUR ---
PT A+O T/O SHIFT, ATTEMPTING TO TURN SELF PRN. PT THIS AM TURNED SELF FULLY AND ASKED FOR THE CALL LIGHT AND KNEW THE ONE ON THE BED DOESN'T WORK. PT TAKING SIPS OF WATER WITHOUT DIFFICULTY. PT ATE APPLE SAUCE EARLIER IN SHIFT WITHOUT DIFFICULTY. PT'S SON STATED WILL BE BACK IN a.m.
[2018-11-11 04:27] LABS: BASOPHILS ABSOLUTE AUTO 0.03 K/mm3 (0.00-0.23); BASOPHILS PERCENT AUTO 1 % (0-2); EOSINOPHILS ABSOLUTE AUTO 0.27 K/mm3 (0.00-0.68); EOSINOPHILS PERCENT AUTO 6 % (0-6); Hematocrit 34.2 % (33.0-51.0); Hemoglobin 11.5 g/dL (11.5-16.0); IMMATURE GRAN ABSOLUTE AUTO 0.01 K/mm3 (0.00-0.10); IMMATURE GRAN PERCENT AUTO 0 % (0-1); LYMPHOCYTES ABSOLUTE AUTO 1.32 K/mm3 (0.84-5.20); LYMPHOCYTES PERCENT AUTO 30 % (21-46); MONOCYTES ABSOLUTE AUTO 0.84 K/mm3 (0.16-1.47); MONOCYTES PERCENT AUTO 19 % (4-13); Mean Corpuscular HGB 36.7 pg (26.0-34.0); Mean Corpuscular HGB Conc 33.6 g/dL (31.5-36.5); Mean Corpuscular Volume 109 fL (80-100); Mean Platelet Volume 9.5 fL (9.1-12.4); NEUTROPHILS ABSOLUTE AUTO 1.91 K/mm3 (1.96-9.15); NEUTROPHILS PERCENT AUTO 44 % (41-73); Platelet Count 94 K/mm3 (150-400); RDW Coefficient Variation 15.5 % (11.7-14.2); RDW Standard Deviation 61.8 fL (35.1-46.3); Red Blood Cell Count 3.13 M/mm3 (3.80-5.20); White Blood Cell Count 4.38 K/mm3 (4.00-11.30)
[2018-11-11 04:40] LABS: Albumin, Blood 2.1 g/dL (3.4-5.0); Anion Gap 6 mmol/L (6-16); Blood Urea Nitrogen 2 mg/dL (8-24); Bun/Creatinine Ratio 3.6 (12.0-20.0); CO2, Blood 26 mmol/L (21-32); Calcium, Blood 8.4 mg/dL (8.5-10.1); Chloride, Blood 112 mmol/L (98-108); Creatinine, Blood 0.56 mg/dL (0.40-1.00); Glomerular Filtration Rate >60 (60-); Glucose, Blood 90 mg/dL (70-99); Phosphorus, Blood 3.5 mg/dL (2.5-4.9); Potassium, Blood 3.6 mmol/L (3.5-5.5); Sodium, Blood 144 mmol/L (136-145)
--- NOTE | 2018-11-11 06:11 | NUR ---
REPORT CALLED TO DRAKE RAGSDALE FOR PT TRANSFER TO ROOM 346 (MEDICAL NON-TELE). ALL QUESTIONS ANSWERED. WILL TRANSFER PT WHEN ABLE.
--- NOTE | 2018-11-11 18:06 | NUR ---
PT TRANSFERRED TO ROOM 333, 2 PERSON TRANSFER WITH THE GAIT BELT, PT VERY WEAK, WILL ASK FOR PT/OT EVAL, PT SITTING UP IN BED EATING DINNER
[2018-11-12 05:32] LABS: BASOPHILS ABSOLUTE AUTO 0.08 K/mm3 (0.00-0.23); BASOPHILS PERCENT AUTO 2 % (0-2); EOSINOPHILS ABSOLUTE AUTO 0.44 K/mm3 (0.00-0.68); EOSINOPHILS PERCENT AUTO 9 % (0-6); Hematocrit 35.9 % (33.0-51.0); IMMATURE GRAN ABSOLUTE AUTO 0.02 K/mm3 (0.00-0.10); IMMATURE GRAN PERCENT AUTO 0 % (0-1); LYMPHOCYTES ABSOLUTE AUTO 1.85 K/mm3 (0.84-5.20); LYMPHOCYTES PERCENT AUTO 37 % (21-46); MONOCYTES ABSOLUTE AUTO 1.06 K/mm3 (0.16-1.47); MONOCYTES PERCENT AUTO 21 % (4-13); Mean Corpuscular HGB 35.9 pg (26.0-34.0); Mean Corpuscular HGB Conc 33.4 g/dL (31.5-36.5); Mean Corpuscular Volume 108 fL (80-100); Mean Platelet Volume 9.8 fL (9.1-12.4); NEUTROPHILS ABSOLUTE AUTO 1.62 K/mm3 (1.96-9.15); NEUTROPHILS PERCENT AUTO 32 % (41-73); Platelet Count 94 K/mm3 (150-400); RDW Standard Deviation 60.1 fL (35.1-46.3); Red Blood Cell Count 3.34 M/mm3 (3.80-5.20); White Blood Cell Count 5.07 K/mm3 (4.00-11.30)
[2018-11-12 05:49] LABS: Albumin, Blood 2.3 g/dL (3.4-5.0); Anion Gap 4 mmol/L (6-16); Blood Urea Nitrogen 1 mg/dL (8-24); Bun/Creatinine Ratio 1.7 (12.0-20.0); CO2, Blood 28 mmol/L (21-32); Calcium, Blood 8.4 mg/dL (8.5-10.1); Chloride, Blood 108 mmol/L (98-108); Creatinine, Blood 0.58 mg/dL (0.40-1.00); Glomerular Filtration Rate >60 (60-); Glucose, Blood 99 mg/dL (70-99); Phosphorus, Blood 3.6 mg/dL (2.5-4.9); Potassium, Blood 3.2 mmol/L (3.5-5.5); Sodium, Blood 140 mmol/L (136-145)
--- NOTE | 2018-11-12 07:36 | NUR ---
DAVISON CATHETER DC'D
--- NOTE | 2018-11-12 07:42 | NUR ---
SHIFT SUMMARY PT REPORTS NOT GETTING MUCH SLEEP LAST NIGHT & STATES "I WAS TOO BUSY LOOKING AT MY BEAUTIFUL VIEW." AOX4. VSS. DENIES SOB OR NAUSEA. REPORTS 8 PAIN IN RLQ & @UMBILICUS, STATES PAIN IS FROM COLITIS & HERNIA, MEDICATED 2X W/OXYCODONE PER ORDERS. LANEY IS PATENT & DRAINING. CALL LIGHT IS IN REACH.
[2018-11-12] MEDS ORDERED: CEFP200 PO (16:35)
[2018-11-12] MEDS ORDERED: FOLI1 PO (16:35)
[2018-11-12] MEDS ORDERED: ONDA4ODT MM (16:37)
[2018-11-12] MEDS ORDERED: Pedi-Dri 100,0060 GM TOP (16:37)
[2018-11-12] MEDS ORDERED: HYDR10 PO (16:37)
[2018-11-12] MEDS ORDERED: Thiamine HCl100 MG PO (16:38)
[2018-11-12] MEDS ORDERED: Florastor250 MG PO (16:38)
[2018-11-12] MEDS ORDERED: PANT40 PO (16:38)
--- NOTE | 2018-11-12 17:20 | NUR ---
SUMMARY/DISCHARGE PT DISCHARGED TO [facility], REPORT CALLED TO RON THE NURSE, [facility] TOOK THE PT VIA WHEELCHAIR
== END 2018-11-12 17:23 | DRG 917 ==
LOC: ER 17:56 → ERHOLD 18:44 → ICUE 18:44 → MEDS 11-11 06:27
PROVIDERS: Emergency Medicine; Internal Medicine; Internal Medicine Critical Care Medicine; Internal Medicine Pulmonary Disease; Nurse Practitioner Acute Care; ADMIT Internal Medicine
PROC: 02HV33Z Insertion of Infusion Device into Superior Vena Cava, Percutaneous Approach (ICD-10-PCS; principal; 2018-11-07)
PROC: 0BH18EZ Insertion of Endotracheal Airway into Trachea, Via Natural or Artificial Opening Endoscopic (ICD-10-PCS; 2018-11-10)
PROC: 5A1945Z Respiratory Ventilation, 24-96 Consecutive Hours (ICD-10-PCS; 2018-11-10)
DX: T50.902A Poisoning by unspecified drugs, medicaments and biological substances, intentional self-harm, initial encounter (principal); G92 Toxic encephalopathy; J96.02 Acute respiratory failure with hypercapnia; J18.9 Pneumonia, unspecified organism; N39.0 Urinary tract infection, site not specified; E87.2 Acidosis; N17.9 Acute kidney failure, unspecified; T88.6XXA Anaphylactic reaction due to adverse effect of correct drug or medicament properly administered, initial encounter; T68.XXXA Hypothermia, initial encounter; K70.10 Alcoholic hepatitis without ascites; I95.9 Hypotension, unspecified; F10.20 Alcohol dependence, uncomplicated; D63.8 Anemia in other chronic diseases classified elsewhere; D69.6 Thrombocytopenia, unspecified; E87.6 Hypokalemia; E83.39 Other disorders of phosphorus metabolism; B96.20 Unspecified Escherichia coli [E. coli] as the cause of diseases classified elsewhere; G89.4 Chronic pain syndrome; F43.21 Adjustment disorder with depressed mood; L89.152 Pressure ulcer of sacral region, stage 2
CPT/HCPCS: 31500; 31720; 36415; 36556; 36600; 71045; 71046; 80048; 80053; 80069; 81001; 82550; 82803; 82947; 83605; 83690; 83735; 84100; 85025; 85027; 85610; 87040; 87077; 87086; 87186; 93005; 93010; 94002; 94003; 94660; 96361; 96374; 96375; 97116; 97162; 97166; 97530; 97535; 99285-25; C1751; C9113; G0480; J0132; J0696; J1650; J2310; J2704; J3475; J3480; J7030; J7040; J7042; J7060; J7070

== ENCOUNTER 2022-12-05 11:28 | Inpatient (IN) | payer MEDICARE, OTHER ==
[~2022-12-05] VITALS: Ht 170.2 cm; Wt 76.4 kg
[~2022-12-05 11:28] MED LIST changes: +CEFP200 PO; +FOLI1 PO; +Florastor250 MG PO; +HYDR10 PO; +ONDA4ODT MM; +PANT40 PO; +Pedi-Dri 100,0060 GM TOP; +TEMA15 PO; +Thiamine HCl100 MG PO
[2022-12-05 11:57] LABS: BASOPHILS ABSOLUTE AUTO 0.02 K/mm3 (0.00-0.23); BASOPHILS PERCENT AUTO 0 % (0-2); EOSINOPHILS ABSOLUTE AUTO 0.09 K/mm3 (0.00-0.68); EOSINOPHILS PERCENT AUTO 1 % (0-6); Hematocrit 33.2 % (33.0-51.0); Hemoglobin 12.4 g/dL (11.5-16.0); IMMATURE GRAN ABSOLUTE AUTO 0.06 K/mm3 (0.00-0.10); IMMATURE GRAN PERCENT AUTO 1 % (0-1); LYMPHOCYTES ABSOLUTE AUTO 0.82 K/mm3 (0.84-5.20); LYMPHOCYTES PERCENT AUTO 10 % (21-46); MONOCYTES PERCENT AUTO 17 % (4-13); Mean Corpuscular HGB 36.4 pg (26.0-34.0); Mean Corpuscular HGB Conc 37.3 g/dL (31.5-36.5); Mean Corpuscular Volume 97 fL (80-100); Mean Platelet Volume 10.4 fL (9.1-12.4); NEUTROPHILS ABSOLUTE AUTO 5.81 K/mm3 (1.96-9.15); NEUTROPHILS PERCENT AUTO 71 % (41-73); Platelet Count 120 K/mm3 (150-400); RDW Coefficient Variation 16.2 % (11.7-14.2); RDW Standard Deviation 55.6 fL (35.1-46.3); Red Blood Cell Count 3.41 M/mm3 (3.80-5.20)
[2022-12-05 12:14] LABS: Albumin, Blood 2.1 g/dL (3.4-5.0); Albumin/Globulin Ratio 0.4 (0.8-1.8); Bilirubin, Direct 9.2 mg/dL (0.0-0.3); Bilirubin, Indirect 2.7 mg/dL (0.1-0.7); Bilirubin, Total 11.9 mg/dL (0.1-1.0); Bun/Creatinine Ratio 17.2 (12.0-20.0); Creatinine, Blood 1.28 mg/dL (0.40-1.00); Globulin, Blood 5.4 g/dL (2.2-4.0); Potassium, Blood 5.6 mmol/L (3.5-5.5); Total Protein, Blood 7.5 g/dL (6.4-8.2)
[2022-12-05 16:30] LABS: International Normalized Ratio 2.46; Prothrombin Time Results 24.5 Sec (9.7-11.5)
[2022-12-05 17:15] LABS: Source, Urine Clean Catch
[2022-12-05 17:25] LABS: Appearance, Urine Hazy (Clear); Blood, Urine 1+ (Neg); Color, Urine Amber (P-Yellow); Glucose Qualitative, Urine Neg (Neg); Ketones, Urine 1+ (Neg); Leukocyte Esterase, Urine 2+ (Neg); Nitrite, Urine Pos (Neg); Protein, Urine 1+ (Neg); Specific Gravity, Urine 1.015 (1.003-1.022); Urobilinogen, Urine 2+ (Normal)
[2022-12-05 17:43] LABS: Bilirubin, Urine 2+ (Neg)
[2022-12-05 17:45] LABS: Bacteria Many /hpf; Hyaline Casts 0-2 /lpf (0-2); Red Blood Cells, Urine 0-2 /hpf (0-2); Renal Epithelial Rare /hpf (0-Rare); Squamous Epithelial Cells Mod /hpf (Few)
[2022-12-05 18:22] LABS: Magnesium, Blood 2.2 mg/dL (1.6-2.4)
[2022-12-05 18:30] LABS: Thyroid Stimulating Hormone 4.2 uIU/mL (0.360-4.800)
[2022-12-05 21:15] VITALS: BP 124/60
[2022-12-05 22:00] VITALS: BP 109/48
[2022-12-05 22:15] VITALS: BP 108/46
--- NOTE | 2022-12-05 22:17 | NUR ---
ASSUMED CARE PT IS A&O X4; PLEASANT AND COOPERATIVE W/ CARE. SPO2 >92% ON 3L NC; MAP <65; NSR. NO C/O CP, INCREASED SOB, OR NAUSEA. PT APPEARS JAUNDICED, ESPECIALLY IN THE SCLERA. ABDOMEN IS DISTENDED AND TENDER TO PALPATION. BT AUSCULTATED IN ALL QUADRANTS. MODERATE EDEMA OBSERVED IN BLE. LOUD SYSTOLIC MURMUR AUSCULTATED. 3% NS INFUSING PER ORDER. PT IS [place]. WILL CONTINUE TO MONITOR.
[2022-12-05 23:00] VITALS: BP 114/58
[2022-12-05 23:11] LABS: Bun/Creatinine Ratio 19.5 (12.0-20.0); Calcium, Blood 8.6 mg/dL (8.5-10.1); Creatinine, Blood 1.28 mg/dL (0.40-1.00); Potassium, Blood 5.3 mmol/L (3.5-5.5)
--- NOTE | 2022-12-05 23:27 | NUR ---
UPDATE INFORMED FELICIA GALVAN MERCHANDISE PICKUP/RECEIVING ASSOCIATE THAT SODIUM [facility] 6 POINTS IN 7~HOURS AND ORDERED TO PUT 3%NS ON SB.
[2022-12-05 23:30] VITALS: BP 110/56
[2022-12-06] VITALS (20 sets, daily range): BP systolic 101–120; BP diastolic 45–72
--- NOTE | 2022-12-06 02:48 | NUR ---
UPDATE PT NOW ON 3L NC WHILE SLEEPING
[2022-12-06 03:37] LABS: BASOPHILS ABSOLUTE AUTO 0.01 K/mm3 (0.00-0.23); BASOPHILS PERCENT AUTO 0 % (0-2); EOSINOPHILS PERCENT AUTO 1 % (0-6); IMMATURE GRAN ABSOLUTE AUTO 0.03 K/mm3 (0.00-0.10); IMMATURE GRAN PERCENT AUTO 0 % (0-1); LYMPHOCYTES ABSOLUTE AUTO 0.82 K/mm3 (0.84-5.20); LYMPHOCYTES PERCENT AUTO 11 % (21-46); MONOCYTES PERCENT AUTO 22 % (4-13); Mean Corpuscular Volume 97 fL (80-100); Mean Platelet Volume 10.2 fL (9.1-12.4); NEUTROPHILS ABSOLUTE AUTO 4.61 K/mm3 (1.96-9.15); NEUTROPHILS PERCENT AUTO 64 % (41-73); Platelet Count 85 K/mm3 (150-400); RDW Coefficient Variation 16.4 % (11.7-14.2); RDW Standard Deviation 56.4 fL (35.1-46.3); White Blood Cell Count 7.17 K/mm3 (4.00-11.30)
[2022-12-06 03:58] LABS: Albumin, Blood 1.9 g/dL (3.4-5.0); Albumin/Globulin Ratio 0.4 (0.8-1.8); Bilirubin, Total 10.8 mg/dL (0.1-1.0); Bun/Creatinine Ratio 19.8 (12.0-20.0); Calcium, Blood 8.7 mg/dL (8.5-10.1); Creatinine, Blood 1.31 mg/dL (0.40-1.00); Globulin, Blood 4.5 g/dL (2.2-4.0); Total Protein, Blood 6.4 g/dL (6.4-8.2)
--- NOTE | 2022-12-06 05:48 | NUR ---
SHIFT SUMMARY PT IS A&O X4; SLEPT T/O MOST OF NIGHT (PER PT). NO C/O CP OR SOB. MILD NAUSEA COMPLAINT WHEN OUT OF BED TO USE TOILET, BUT QUICKLY RESOLVED ON IT'S OWN. 3% NS HAS BEEN ON SB FOR MOST OF NIGHT (SEE FLOWSHEET). CURRENTLY SALINE LOCKED. SPO2 >92% ON 4L NC. NO ACUTE EVENTS OVER NIGHT.
--- NOTE | 2022-12-06 07:00 | NUR ---
ASSUMED CARE OF PATIENT AND RECEIVED REPORT FROM REPACKER NURSE. NEURO: PATIENT WAS INITIALLY ASLEEP DURING REPORT BUT WAS EASILY AROUSABLE UPON ENTERING HER ROOM. A&OX4 AND PLEASANT. SHE REQUIRES ONE PERSON SBA TO AMBULATE TO THE BEDSIDE COMMODE. CARDIAC: PATIENT IS IN SINUR RHYTHM WITH HR IN LOW 70'S. BP AT 120/72. RESPIRATORY: REPACKER NURSE REPORTS HAD NEEDED UP TO 4LPM OF O2 PER NC. THIS AM O2 SAT IS 94% ON ROOM AIR. GI: ABDOMEN IS DISTENDED, HARD, AND TENDER WITH HYPOACTIVE BOWEL SOUNDS. SHE IS NAUSEATED THIS MORNING AFTER TAKING HER MORNING MEDS AND IS OPTING TO WAIT TO EAT BREAKFAST UNTIL THIS SETTLES. ADMISSION NOTED HPI OF DIARRHEA, HOWEVER PATIENT HAS NOT HAD A BM SINCE ADMISSION. : PATIENT IS VOIDING DARK URINE. FIRST VOID UNMEASURABLE THE HAT WAS MISSED. SKIN: INTACT. TEMPERATUE IS 97.8 VIA TEMPORAL ARTERY.
[2022-12-06 08:09] LABS: BASOPHILS ABSOLUTE AUTO 0.02 K/mm3 (0.00-0.23); BASOPHILS PERCENT AUTO 0 % (0-2); EOSINOPHILS ABSOLUTE AUTO 0.15 K/mm3 (0.00-0.68); EOSINOPHILS PERCENT AUTO 2 % (0-6); Hematocrit 31.2 % (33.0-51.0); Hemoglobin 11.7 g/dL (11.5-16.0); IMMATURE GRAN ABSOLUTE AUTO 0.05 K/mm3 (0.00-0.10); IMMATURE GRAN PERCENT AUTO 1 % (0-1); LYMPHOCYTES ABSOLUTE AUTO 0.81 K/mm3 (0.84-5.20); LYMPHOCYTES PERCENT AUTO 11 % (21-46); MONOCYTES PERCENT AUTO 17 % (4-13); Mean Corpuscular HGB 36.6 pg (26.0-34.0); Mean Corpuscular HGB Conc 37.5 g/dL (31.5-36.5); Mean Corpuscular Volume 98 fL (80-100); Mean Platelet Volume 10.3 fL (9.1-12.4); NEUTROPHILS ABSOLUTE AUTO 4.85 K/mm3 (1.96-9.15); NEUTROPHILS PERCENT AUTO 69 % (41-73); Platelet Count 99 K/mm3 (150-400); RDW Coefficient Variation 16.4 % (11.7-14.2); RDW Standard Deviation 57.3 fL (35.1-46.3); White Blood Cell Count 7.08 K/mm3 (4.00-11.30)
[2022-12-06 08:34] LABS: Bun/Creatinine Ratio 19.3 (12.0-20.0); Calcium, Blood 8.4 mg/dL (8.5-10.1); Creatinine, Blood 1.4 mg/dL (0.40-1.00)
--- NOTE | 2022-12-06 17:15 | NUR ---
LATE ENTRY 1640: RECEIVED REPORT FROM KIERA RAGSDALE. 1700: RECEIVED PT FROM ICU 5 VIA W/C, PT PLACED SELF IN BED, MADE COMFORTABLE, ORIENTED TO ROOM & UNIT ROUTINE. IS ON 4 L'S O2 VIA N/C. IS A&O X 4, IS PLEASANT & COOPERATIVE. IS STDBY ASSIST FOR AMBULATION BEYOND BSC USE WHICH SITS AT BEDSIDE. IS INDEPENDENT FOR BSC USE. PT STATES HER LAST DRINK WAS YESTERDAY, DOING CIWA'S. WAS ADMITTED FOR N/V & DIARRHEA X 5+ DAYS. NA+ ON ADMIT WAS 113. TODAY IS 121. IS RECEIVING SODIUM TABS.
--- NOTE | 2022-12-06 17:19 | NUR ---
PATIENT TRANSFERRED TO [facility] FLOOR ROOM 353 VIA WHEELCHAIR. SPOKE WITH NURSE [place] UPON TRANSFER. PATIENT TOLERATED WELL. SEE FLOWSHEET FOR ASSESSMENT DATA. NO FAMILY AT BEDSIDE. DAUGHTER CALLED AND NOTIFIED OF TRANSFER. ALL BELONGINGS SENT WITH PATIENT.
--- NOTE | 2022-12-06 18:57 | NUR ---
pt wanted to update her polst. Review of treatment and polst completed for dnr limited treatment. pt does not want cpr or vintilation or dialysis. Review with attending pt meld score is high hospice may be apporpreiate.
[2022-12-07 05:02] VITALS: BP 113/62
[2022-12-07 05:38] LABS: BASOPHILS ABSOLUTE AUTO 0.03 K/mm3 (0.00-0.23); BASOPHILS PERCENT AUTO 1 % (0-2); EOSINOPHILS ABSOLUTE AUTO 0.23 K/mm3 (0.00-0.68); EOSINOPHILS PERCENT AUTO 4 % (0-6); Hematocrit 29.5 % (33.0-51.0); Hemoglobin 10.9 g/dL (11.5-16.0); IMMATURE GRAN ABSOLUTE AUTO 0.04 K/mm3 (0.00-0.10); IMMATURE GRAN PERCENT AUTO 1 % (0-1); LYMPHOCYTES ABSOLUTE AUTO 0.68 K/mm3 (0.84-5.20); LYMPHOCYTES PERCENT AUTO 11 % (21-46); MONOCYTES ABSOLUTE AUTO 1.22 K/mm3 (0.16-1.47); MONOCYTES PERCENT AUTO 21 % (4-13); Mean Corpuscular HGB 36.5 pg (26.0-34.0); Mean Corpuscular HGB Conc 36.9 g/dL (31.5-36.5); Mean Corpuscular Volume 99 fL (80-100); Mean Platelet Volume 10.3 fL (9.1-12.4); NEUTROPHILS ABSOLUTE AUTO 3.76 K/mm3 (1.96-9.15); NEUTROPHILS PERCENT AUTO 63 % (41-73); Platelet Count 87 K/mm3 (150-400); RDW Coefficient Variation 16.7 % (11.7-14.2); Red Blood Cell Count 2.99 M/mm3 (3.80-5.20); White Blood Cell Count 5.96 K/mm3 (4.00-11.30)
--- NOTE | 2022-12-07 05:42 | NUR ---
SHIFT SUMMARY PT SITTING UP IN BED DURING BEDSIDE REPORT- PT TOOK SCHEDULED SODIUM TABLET CRUSHED IN APPLE SAUCE WITHOUT PROBLEMS SCDS APPLIED PER ORDER, PT WAS USING BSC ON OWN, EDUCATED PT OF IMPORTANCE OF CALLING FOR ASSISTANCE D/T FALL RISK FROM SCDS- PT STATED UNDERSTANDING AND USED CALL NIGHT T/O NIGHT, BED LOW POSITION, CALL LIGHT WITHIN REACH, BED ALARM IN PLACE
[2022-12-07 06:14] LABS: Albumin, Blood 1.9 g/dL (3.4-5.0); Albumin/Globulin Ratio 0.4 (0.8-1.8); Bilirubin, Total 11.1 mg/dL (0.1-1.0); Bun/Creatinine Ratio 19.2 (12.0-20.0); Calcium, Blood 8.4 mg/dL (8.5-10.1); Creatinine, Blood 1.56 mg/dL (0.40-1.00); Globulin, Blood 4.6 g/dL (2.2-4.0); Potassium, Blood 4.5 mmol/L (3.5-5.5); Total Protein, Blood 6.5 g/dL (6.4-8.2)
[2022-12-07 07:39] VITALS: BP 115/59
[2022-12-07 15:48] VITALS: BP 106/56
--- NOTE | 2022-12-07 17:41 | NUR ---
SHIFT SUMMARY NO ACUTE CHANGES DURING SHIFT. PT ALERT AND ORIENTED, CALLS APPROPRIATELY. PT ON 4L NC. SPEECH REEVALUATED PT THIS MORNING, NO CHANGES IN DIET, MEDS CRUSHED IN APPLESAUCE. ULTRAM ORDERED PRN FOR PT. PLANS FOR PALLIATIVE CARE EVAL FOR HOSPICE IN NEAR FUTURE. WILL CONTINUE TO MONITOR. CALL LIGHT WITHIN REACH.
[2022-12-07 20:27] VITALS: BP 123/63
[2022-12-08 03:41] VITALS: BP 123/70
[2022-12-08 05:39] LABS: BASOPHILS ABSOLUTE AUTO 0.03 K/mm3 (0.00-0.23); BASOPHILS PERCENT AUTO 1 % (0-2); EOSINOPHILS ABSOLUTE AUTO 0.18 K/mm3 (0.00-0.68); EOSINOPHILS PERCENT AUTO 3 % (0-6); Hematocrit 28.1 % (33.0-51.0); Hemoglobin 10.4 g/dL (11.5-16.0); IMMATURE GRAN PERCENT AUTO 2 % (0-1); LYMPHOCYTES PERCENT AUTO 9 % (21-46); MONOCYTES PERCENT AUTO 22 % (4-13); Mean Corpuscular HGB 36.9 pg (26.0-34.0); Mean Corpuscular Volume 100 fL (80-100); Mean Platelet Volume 10.4 fL (9.1-12.4); NEUTROPHILS PERCENT AUTO 64 % (41-73); Platelet Count 73 K/mm3 (150-400); RDW Standard Deviation 59.7 fL (35.1-46.3); Red Blood Cell Count 2.82 M/mm3 (3.80-5.20); White Blood Cell Count 5.81 K/mm3 (4.00-11.30)
--- NOTE | 2022-12-08 06:03 | NUR ---
SHIFT SUMMARY PT SITTING UP IN BED WITH FOOD TRAY IN FRONT OF HER- PT REQUESTED TO NOT TAKE TRAY AWAY D/T PT TAKING SMALL BITES- PT TOOK SCHEDULED HS SODIUM TAB CRUSHED IN APPLE SAUCE, APPLIED NYSTATIN POWDER TO BREAST AND UNDER STOMACH FOLD, BOTH RASHES DECREASED IN SIZE SINCE PREVIOUS CONTROL ROOM TENDER- APPLIED SCDS TO BILAT LEGS- PT USED CALL LIGHT APPROPRIATELY T/O NIGHT- BED LOW POSITION, CALL LIGHT WITHIN REACH
[2022-12-08 06:05] LABS: Albumin, Blood 1.9 g/dL (3.4-5.0); Albumin/Globulin Ratio 0.4 (0.8-1.8); Bilirubin, Total 10.7 mg/dL (0.1-1.0); Bun/Creatinine Ratio 22.1 (12.0-20.0); Calcium, Blood 8.6 mg/dL (8.5-10.1); Creatinine, Blood 1.45 mg/dL (0.40-1.00); Globulin, Blood 4.4 g/dL (2.2-4.0); Phosphorus, Blood 2.4 mg/dL (2.5-4.9); Potassium, Blood 3.8 mmol/L (3.5-5.5); Total Protein, Blood 6.3 g/dL (6.4-8.2)
[2022-12-08 07:41] VITALS: BP 122/66
[2022-12-08 14:59] VITALS: BP 122/59
--- NOTE | 2022-12-08 16:53 | NUR ---
SHIFT SUMMARY NO ACUTE CHANGES DURING SHIFT NOTED. PT ALERT AND ORIENTED, CALLS APPROPRIATELY. PT REMAINS ON 2L NC, SBA TO BATHROOM WITH WALKER. PRN PAIN MEDICATION GIVEN PER EMAR. PO ABX STARTED TODAY, ELECTROLYTES REPLACED. WILL CONTINUE TO MONITOR. CALL LIGHT WITHIN REACH.
[2022-12-08 20:32] VITALS: BP 116/69
[2022-12-09 04:27] VITALS: BP 114/72
--- NOTE | 2022-12-09 08:01 | NUR ---
ADELAIDA WAS UP A GOOD PART OF THE NIGHT GOING BACK AND FORTH TO THE BATHROOM. PLEASANT AND COOPERATIVE WITH CARE. SHE DISCUSSED HER DIAGNOSIS WELL HER INTEREST IN SPEAKING WITH PALLIATIVE CARE ABOUT HOSPICE OPTIONS. BY THIS MORNING, ADELAIDA CALLED THIS RN IN TO SAY THAT SHE HAD DECIDED TO BE COMFORT CARE "IF IT WOULD STOP THE TREATMENT THAT MAKES ME STAY UP ALL NIGHT AND PEE." I TOLD HER THAT THIS WOULD BE A GOOD THING TO SPEAK WITH THE DOCTOR ABOUT MAYBE IT WAS JUST THE TIMING OF THE MED THAT WAS CAUSING HER LOSS OF SLEEP. HOPING PALLIATIVE CARE TO BE HERE TODAY, BUT PATIENT PREPARED FOR THEM IF THEY ARE NOT AVAILABLE UNTIL FRIDAY
--- NOTE | 2022-12-09 16:37 | NUR ---
END OF SHIFT SUMMARY PT A&O X4, COOPERATIVE WITH CARE. CHANGED TO COMFORT CARE TODAY. POLST UPDATED, SENT TO MEDICAL RECORDS, PLACED COPY IN CHART, PT COPY HANGING ON BOARD. MEDICATED PER MAR FOR ABDOMINAL PAIN AND TENDERNESS. PT APPETITE IS DECREASED. DOES NOT LIKE COLD WATER, FAMILY BROUGHT IN COLD WATER FOR PT TO DRINK. FAMILY AT BEDSIDE T/O THE DAY. PT RESTING AND REQUESTED NOT TO BE BOTHERED. DID REQUEST JELLO. USES CALL LIGHT APPROPRIATLEY, BED ALARM SET, BED IN LOW POSITION.
--- NOTE | 2022-12-09 17:59 | NUR ---
REVIEWED ASSESSMENT AND NOTES CHARTED BY HOSSEIN, STUDENT NURSE AND AGREE WITH HER DOCUMENTATION FOR THIS PATIENT.
--- NOTE | 2022-12-10 03:51 | NUR ---
SHIFT HAS BEEN MOSTLY UNREMARKABLE. PAIN IS WELL MANAGED ON CURRENT MEDICATION REGIMEN. PT IS AOX4 BUT MUMBLES SPEECH AND WAS NEAR CONSTANTLY REQUESTING FLUIDS FOR FIRST SEVERAL HOURS OF SHIFT DESPITE KNOWING HE WAS ON 1000ML FLUID RESTRICTION. TOOK 2100 MEDICATIONS WITHOUT DIFFICULTY. HAS SLEPT WELL THROUGHOUT MOST OF SHIFT. DAVISON IS INTACT, PATENT, AND DRAINING WELL. COMPLAINS OF NOT BEING ABLE TO FEED HIMSELF BUT WAS ABLE TO FEED HIMSELF PUDDING UPON PROMPTING TO DO SO. SATTING WELL ON ROOM AIR. HAS NOT ATTEMPTED OOB THIS SHIFT. BED LOCKED IN LOWEST POSITION. CALL LIGHT LEFT WITHIN REACH.
--- NOTE | 2022-12-10 17:24 | NUR ---
END OF SHIFT SUMMARY PT ON COMFORT CARE AND WILL BE GOING HOME TOMORROW WITH HOSPICE. PT A&O X4, [place], BECOMES IRRITABLE WITH STAFF CARE. SHE WANTS TO BE INDEPENDENT AND WANTS TO GO HOME. GAVE PT ROXANOL TODAY FOR PAIN INSTEAD OF IV PAIN MEDS SINCE PT WILL BE GOING HOME WITH ORAL MEDS. PT STATED HER PAIN WAS UNDER CONTROL. DR JACOBS WROTE SCRIPT FOR PAIN MEDS AND IT WAS PLACED IN THE CHART. 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 PT JAUNDICED WITH TEA COLORED URINE, DISTENDED ABDOMEN. COOPERATIVE WITH MOST CARE. PT FAMILY AND FRIENDS AT BEDSIDE T/O THE DAY. PT EATS PUREED DIET ONLY
--- NOTE | 2022-12-11 04:47 | NUR ---
SHIFT HAS BEEN UNREMARKABLE. PT HAS SLEPT THROUGH MUCH OF SHIFT. PAIN WELL MANAGED VIA ORAL MEDS ON EMAR. INDEPENDENT WITHIN ROOM TO BATHROOM. SATTING WELL ON 2 L VIA N. PT IS MOSTLY PLEASANT BUT EASILY IRRITABLE WITH FREQUENCY OF CARE, VERY ANXIOUS TO GO HOME. BED LOCKED IN LOWEST POSITION. CALL LIGHT LEFT WITHIN REACH
--- NOTE | 2022-12-11 11:03 | NUR ---
Pt ready for discharge this morning, Rx script given to family for Morphine. Discharged education provided, Hospice will meet patient at home. Pt left unit at 0930
== END 2022-12-11 09:24 | disposition hospice, home (50) | DRG 433 ==
LOC: ER 11:28 → PCU 17:48 → ICUW 17:48 → MEDS 17:48 → ER 17:48 → ICUE 17:48 → PCU 18:40 → ICUW 18:55 → ICUE 21:04 → MEDS 12-06 16:50
PROVIDERS: Internal Medicine; Nurse Practitioner Acute Care; Physician Assistant; Student in an Organized Health Care Education/Training Program; ADMIT Hospitalist
DX: K70.31 Alcoholic cirrhosis of liver with ascites (principal); E87.1 Hypo-osmolality and hyponatremia; N17.9 Acute kidney failure, unspecified; K76.6 Portal hypertension; N39.0 Urinary tract infection, site not specified; J90 Pleural effusion, not elsewhere classified; Z66 Do not resuscitate; Z51.5 Encounter for palliative care; E87.5 Hyperkalemia; E87.70 Fluid overload, unspecified; F10.20 Alcohol dependence, uncomplicated; B96.89 Other specified bacterial agents as the cause of diseases classified elsewhere; B96.20 Unspecified Escherichia coli [E. coli] as the cause of diseases classified elsewhere; G89.29 Other chronic pain; R09.02 Hypoxemia; N18.30 Chronic kidney disease, stage 3 unspecified; K40.90 Unilateral inguinal hernia, without obstruction or gangrene, not specified as recurrent; D69.6 Thrombocytopenia, unspecified; E80.6 Other disorders of bilirubin metabolism; K70.10 Alcoholic hepatitis without ascites; Z86.79 Personal history of other diseases of the circulatory system; Z90.710 Acquired absence of both cervix and uterus; Z98.51 Tubal ligation status; Z90.49 Acquired absence of other specified parts of digestive tract; Z98.890 Other specified postprocedural states; Z79.891 Long term (current) use of opiate analgesic; Z79.899 Other long term (current) drug therapy; Z99.81 Dependence on supplemental oxygen; Z71.41 Alcohol abuse counseling and surveillance of alcoholic
CPT/HCPCS: 36415; 71046; 74177; 76705; 80048; 80053; 80076; 81001; 82140; 82550; 82570; 83690; 83735; 83880; 83930; 83935; 84100; 84132; 84295; 84300; 84443; 85025; 85610; 87077; 87086; 87186; 92610; 93005; 93010; 94760; 96361; 96365-59; 96375; 96376; 97110; 97116; 97162; 99285-25; A9270; G0480; J0696; J1940; J2405; J3010; J7060; Q9967